=== PATIENT | female | born 1955 | race Caucasian/White ===

== ENCOUNTER 2019-02-16 08:51 | Day surgery (SDC) | payer BC ==
[~2019-02-16 08:51] MED LIST: Buffered Lidocaine 1% SYRIN* 1 ML/SYRINGE INTRADERM ONE; Lactated Ringers 1000 ML Bag* 1,000 ML IV SCH
[2019-02-16] MEDS ORDERED: Bupivacaine 0.25% SDV PF* 10 ML VIAL INJ ONE (09:52)
[2019-02-16] MEDS ORDERED: fentaNYL* 50 MCG/ML 2 ML VIAL (100 MCG VIAL) ONE (09:59)
[2019-02-16] MEDS ORDERED: Midazolam* 1 MG/ML 2 ML VIAL (2 MG) ONE (09:59)
[2019-02-16] MEDS ORDERED: Dexamethasone IV* 4 MG/ML 1 ML (4 MG) ONE (10:05)
[2019-02-16] MEDS ORDERED: Lidocaine 2% PF * 5 ML VIAL ONE (10:05)
[2019-02-16] MEDS ORDERED: Ondansetron INJ* 2 MG/ML VIAL ONE (10:05)
[2019-02-16] MEDS ORDERED: Propofol* 10 MG/ML 20 ML BTL ONE (10:05)
[2019-02-16] MEDS ORDERED: Ketorolac INJ* 30 MG/ML 1 ML VIAL ONE (10:05)
[2019-02-16] MEDS ORDERED: diPHENhydraMINE IV* 50 MG/ML 1 ml VIAL (BENADRYL) ONE (10:10)
[2019-02-16] MEDS ORDERED: DiMENhydriNATE IV* 50 MG/ML VIAL IV PUSH PRN (10:17)
[2019-02-16] MEDS ORDERED: Acetaminophen TAB* 325 MG PO PRN (10:17)
[2019-02-16] MEDS ORDERED: HYDROcodone/ACETAMIN 5-325 MG* 1 TAB PO PRN (10:17)
[2019-02-16] MEDS ORDERED: PROCHLORPERAZINE INJ 5 MG/ML 2 ML VIAL IV PRN (10:17)
[2019-02-16] MEDS ORDERED: Naloxone* 0.4 MG/ML 1 ML VIAL IV PRN (10:17)
[2019-02-16] MEDS ORDERED: diPHENhydraMINE IV* 50 MG/ML 1 ml VIAL (BENADRYL) IV PRN (10:17)
[2019-02-16 10:56] VITALS: BP 125/68
--- NOTE | 2019-02-16 13:39 | OP ---
DATE OF OPERATION: 02/16/19 [facility] DATE OF : 55 SURGEON: Freddy Lorenzo MD UNIT TECHNICIAN: SOFIA Zavaleta ANESTHESIOLOGIST: Dr. Taveras. ANESTHESIA: Local MAC. PRE-OP DIAGNOSIS: Left de Quervain's disease. POST-OP DIAGNOSIS: Left de Quervain's disease. OPERATIVE PROCEDURE: Left de Quervain's release. INDICATIONS: Jennifer has the aforementioned condition. We talked about risks and benefits. She has tried nonoperative treatments. She wants to proceed with the release. ESTIMATED BLOOD LOSS: 2 mL. COMPLICATIONS: None. FINDINGS: See above and below. There was an accessory compartment. DESCRIPTION OF PROCEDURE: The patient was seen in the preoperative holding area. The correct side, site, and procedure were identified. We came back to the operating room. I numbed up the operative area with 0.25% plain Marcaine. The arm was prepped and draped in the usual fashion and time-out was performed. The arm was exsanguinated and the tourniquet was inflated to 200 mmHg. I made a 2 cm transverse incision just proximal to the radial styloid. Dissection was carried down and full-thickness flaps were raised off the sheath. The Ragnell retractors were placed. I released the first dorsal compartment tendon sheath off the dorsal aspect. The release was carried all the way down distally and then proximally. There was abundant tenosynovitis, this was all excised. There was really quite a bit of it. I then noted an accessory compartment. The septum was excised in its entirety. Again, a full tenosynovectomy was performed. At this point, everything was looking very good. The tendons were clean. The release was complete. We irrigated out the wound. The skin was closed with a 4-0 Monocryl suture and Steri-Strips. Soft dressing was applied and she was taken to the recovery room in stable condition. [id number]/[facility] #: [id number] [facility]
== END 2019-02-16 11:09 | disposition home or self-care (01) ==
LOC: OREAST 08:51
PROVIDERS: ATTEND Orthopaedic Surgery Hand Surgery
DX: M65.4 Radial styloid tenosynovitis [de Quervain] (principal); M79.7 Fibromyalgia; K21.9 Gastro-esophageal reflux disease without esophagitis; F41.8 Other specified anxiety disorders; E78.5 Hyperlipidemia, unspecified; Z87.891 Personal history of nicotine dependence
CPT/HCPCS: J1100; J1200; J1885; J2250; J2405; J2704; J3010; J3490